=== PATIENT | male | born 1950 | race Caucasian/White ===

== ENCOUNTER 2018-08-28 10:17 | Emergency (ER) | payer MEDICARE, OTHER ==
--- NOTE | 2018-08-28 11:13 | ER Document Report ---
ED Neuro Symptoms/Deficit - General Stated Complaint: SYNCOPE Time Seen by Provider: 08/28/18 10:50 Primary Care Provider: MARIA DOLORES MORALES MD [Primary Care Provider] - Follow up as needed Notes: This is this patient's third episode of passing out and weakness. Today, he was with his eating breakfast at [employer] and after finishing, they were about to leave and he was unable to get up from sitting and stared glassy eyed and had blurred vision and could not talk or respond and went unconscious. EMS was called to the scene and says that he regained consciousness. Patient has had 2 prior episodes similar to this one. The first one was about a month ago and the patient was airlifted to [facility] where he was admitted and had a complete work-up for syncope. His symptoms at that time included left- sided weakness associated with the same central symptoms of blurred vision, etc. His symptoms completely resolved and his work-up at [facility] was normal including carotid studies and a MRI as well as CT scan of his brain. Also had EEG of the brain and negative carotid artery studies. Patient had a second episode just this past Saturday where any slumped unconscious while at [employer]. He was brought to the ER where he recovered completely from his symptoms and felt fine and his work-up was negative and he was discharged home. Patient has a 3 wire pacemaker that he had for 8 years. He has the pacemaker because his heart rate got too slow. Spoke with Dr. Munroe, this patient's private doctor at [facility] and [facility]. He has concerns about whether this pacemaker may be causing a problem in these episodes. I discussed whether he felt the patient should receive TPA or anticoagulation and he said "definitely not" based upon their concerns about circulation and the pacemaker. TRAVEL OUTSIDE OF THE [place] IN LAST 30 DAYS: No - Related Data Allergies/Adverse Reactions: iodine [Iodine] Allergy (Verified 01/02/14 19:28) Past Medical History - Social History Smoking Status: Unknown if Ever Smoked Family History: Reviewed & Not Pertinent - Past Medical History Cardiac Medical History: Reports: Other - Pacemaker. Denies: Hx Atrial Fibrillation Neurological Medical History: Reports: Other - See HPI. Psychiatric Medical History: Reports: None Past Surgical History: Reports: Hx Cardiac Surgery - pacemaker, Hx Orthopedic Surgery - bilat rotator cuffs, Hx Rectal Surgery - prostate - Immunizations Hx Diphtheria, Pertussis, Tetanus Vaccination: No Review of Systems - Review of Systems Notes: REVIEW OF SYSTEMS: Per family, because patient not speaking at this time. Patient attempting to answer questions, mouthing words like yes and no and also blinking eyes to answer questions CONSTITUTIONAL : Denies fever. EENT: Denies eye, ear, nose or mouth or throat pain or other symptoms. CARDIOVASCULAR: Denies chest pain. RESPIRATORY: Denies cough, chest congestion, or shortness of breath. GASTROINTESTINAL: Denies abdominal pain or nausea, vomiting, or diarrhea. GENITOURINARY: Denies difficulty or painful urinating, urinary frequency, blood in urine. MUSCULOSKELETAL: Denies back or neck pain. Denies joint pain or swelling. SKIN: Denies rash or skin lesions. NEUROLOGICAL: Loss of consciousness as mentioned, weakness of both arms. ALL OTHER SYSTEMS REVIEWED AND NEGATIVE. Physical Exam - Vital signs Vitals: Resp 22 H 08/28/18 10:21 Interpretation: Normal Notes: PHYSICAL EXAMINATION: GENERAL: Well-appearing, in no acute distress. HEAD: Atraumatic, normocephalic. No facial asymmetry. EYES: Pupils equal round and reactive to light, extraocular movements intact. ENT: oropharynx clear without exudates. Moist mucous membranes. NECK: Normal range of motion, supple. LUNGS: Breath sounds clear and equal bilaterally. HEART: Regular rate and rhythm without murmurs. ABDOMEN: Soft, nontender. No guarding or rebound. No masses. BACK: No tenderness throughout entire back. EXTREMITIES: Normal range of motion without pain. NEUROLOGICAL: LOC as described. See HPI. Patient has generalized weakness and is unable to raise either arm. 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 At this time, not complaining of a headache. PSYCH: Unable to assess.. SKIN: Warm, dry, no rashes. Course - Re-evaluation Re-evalutation: 08/28/18 16:45 Differential diagnosis includes TIA, seizures, near-syncope, conversion reaction. Just prior to about noon, spoke with Dr. Munroe, PCP in [place]. about 1:30 - 2:00 pm, Called from Hospitalist at [facility]--unable to accept patient in transfer because no Neuroology at their hospital. Spoke with [facility] and they cannot admit general bed patients--on divert to all. Spoke with Dr. Garner at [facility] who accepted pattient but no beds at this time, but will put patient on the list. 16:45 called to [facility] for possilbe transfer. 08/28/18 17:59 Received a call back from [facility] at [facility]. Spoke with Dr. Valadez, who says that we can send the patient to their emergency department for them to make a disposition from there. Patient has remained stable with normal vital signs. He has been able to eat a meal with no problems. Drinking liquids. No trouble swallowing. Patient appears to be medically stable for transfer. Accepting doctor in the emergency department at [facility] is Kain Johnson. Transport is being arranged. Kelly Fonseca MD - Vital Signs Vital signs: Temp Pulse Resp BP Pulse Ox 98.1 F 70 22 H 122/82 98 08/28/18 19:31 08/28/18 17:00 08/28/18 19:31 08/28/18 19:31 08/28/18 19:31 - Laboratory Result Diagrams: 08/28/18 10:10 08/28/18 10:10 Laboratory results interpreted by me: 08/28/18 10:10 BUN 24 H Creatinine 1.36 H Est GFR (Non-Af Amer) 52 L Glucose 67 L Direct Bilirubin 0.5 H ALT 19 L - Diagnostic Test Radiology reviewed: Image reviewed, Reports reviewed - CT scans normal. - EKG Interpretation by Me Rate: Normal Rhythm: Other - Atrial paced rhythm Critical Care Note - Critical Care Note Total time excluding time spent on procedures (mins): 50 Discharge - Discharge Clinical Impression: Altered mental status, unspecified, Transient ischemic attack (TIA) Condition: Stable Disposition: [facility] Referrals: MARIA DOLORES MORALES MD [Primary Care Provider] - Follow up as needed
--- NOTE | 2018-08-28 11:28 | RADIOLOGY REPORT (SQ) ---
EXAM DESCRIPTION: CT HEAD WITHOUT COMPLETED DATE/TIME: 08/28/2018 11:00 am REASON FOR STUDY: SYNCOPE, CONFUSION COMPARISON: 08/24/2018 TECHNIQUE: Axial images acquired through the brain without intravenous contrast. Images reviewed wi th bone, brain and subdural windows. Additional sagittal and coronal reconstructions were generated. Images stored on PACS. All CT scanners at this facility use dose modulation, iterative reconstruction, and/or weight based d osing when appropriate to reduce radiation dose to as low as reasonably achievable (ALARA). [facility]: Dose Right [facility]: CareDose [facility]: Dose Right [facility]: Teradose 4D [facility]: Smart Written RADIATION DOSE: CT Rad equipment meets quality standard of care and radiation dose reduction techniq ues were employed. CTDIvol: 53.2 mGy. DLP: 1097 mGy-cm. mGy. LIMITATIONS: None. FINDINGS: VENTRICLES: Normal size and contour. CEREBRUM: No masses. No hemorrhage. No midline shift. No evidence for acute infarction. Normal gra y/white matter differentiation. No areas of low density in the white matter. CEREBELLUM: No masses. No hemorrhage. No alteration of density. No evidence for acute infarction. EXTRAAXIAL SPACES: No fluid collections. No masses. ORBITS AND GLOBE: No intra- or extraconal masses. Normal contour of globe without masses. CALVARIUM: No fracture. PARANASAL SINUSES: No fluid or mucosal thickening. SOFT TISSUES: No mass or hematoma. OTHER: No other significant finding. IMPRESSION: No acute intracranial pathology. EVIDENCE OF ACUTE STROKE: NO. COMMENT: Quality ID # [id number]: Final reports with documentation of one or more dose reduction techniques (e.g., Automated exposure control, adjustment of the mA and/or kV according to patient size, use of iterative reconstruction technique) TECHNICAL DOCUMENTATION: JOB ID: [id number] [employer]- All Rights Reserved Reading location - IP/workstation name: [id number]
[2018-08-28 11:44] LABS: ABSOLUTE EOSINOPHILS # (AUTO) 0.1 10^3/uL (0.0-0.6); ABSOLUTE LYMPHOCYTES (AUTO) 1.5 10^3/uL (0.5-4.7); ABSOLUTE MONOCYTES (AUTO) 0.4 10^3/uL (0.1-1.4); ABSOLUTE NEUT (AUTO) 4.3 10^3/uL (1.7-8.2); BASOPHILS % (AUTO) 0.6 % (0-2); EOSINOPHILS % (AUTO) 1.7 % (0-6); HEMATOCRIT 40.5 % (37.9-51.0); HEMOGLOBIN 13.7 g/dL (13.5-17.0); LYMPHOCYTES % (AUTO) 24.2 % (13-45); MEAN CORPUSCULAR HEMOGLOBIN 29.9 pg (27.0-33.4); MEAN CORPUSCULAR HGB CONC 33.7 g/dL (32.0-36.0); MEAN CORPUSCULAR VOLUME 89 fl (80-97); MONOCYTES % (AUTO) 6.5 % (3-13); PLATELET COUNT 264 10^3/uL (150-450); RED BLOOD COUNT 4.57 10^6/uL (4.35-5.55); RED CELL DISTRIBUTION WIDTH 13.5 % (11.5-14.0); TOTAL CELLS COUNTED % (AUTO) 100 %; WHITE BLOOD COUNT 6.4 10^3/uL (4.0-10.5)
[2018-08-28 11:47] LABS: INTERNATIONAL RATION (INR) 0.88
[2018-08-28 11:48] LABS: PARTIAL THROMBOPLASTIN TIME 30.1 SEC (23.5-35.8)
[2018-08-28 11:50] LABS: PROTHROMBIN TIME 12.4 SEC (11.4-15.4)
[2018-08-28 12:08] LABS: ALANINE AMINOTRANSFERASE 19 U/L (21-72); ALBUMIN 4.1 g/dL (3.5-5.0); ALKALINE PHOSPHATASE 68 U/L (38-126); ANION GAP 10 (5-19); ASPARTATE AMINO TRANSFERASE 24 U/L (17-59); BILIRUBIN,DIRECT 0.5 mg/dL (0.0-0.4); BILIRUBIN,TOTAL 0.8 mg/dL (0.2-1.3); BLOOD UREA NITROGEN 24 mg/dL (7-20); CARBON DIOXIDE 29 mmol/L (22-30); CHLORIDE 102 mmol/L (98-107); CREATINE KINASE 62 U/L (55-170); SODIUM 140.7 mmol/L (137-145); TOTAL PROTEIN 7.4 g/dL (6.3-8.2)
[2018-08-28 12:12] LABS: GLUCOSE 67 mg/dL (75-110)
[2018-08-28 12:18] LABS: CREATINE KINASE MB 0.55 ng/mL (<4.55)
[2018-08-28 12:20] LABS: TROPONIN I < 0.012 ng/mL
[2018-08-28 19:38] VITALS: BP 122/82
--- NOTE | 2018-08-28 23:20 | EKG REPORT ---
SEVERITY:- ABNORMAL ECG - ATRIAL-PACED RHYTHM : Confirmed by: Landon Escalante 28-Aug-2018 23:20:25
== END 2018-08-28 20:03 | disposition short-term general hospital (02) ==
LOC: ER 10:17
DX: G45.9 Transient cerebral ischemic attack, unspecified (principal); R41.82 Altered mental status, unspecified; H53.8 Other visual disturbances; R53.1 Weakness; R55 Syncope and collapse; R00.1 Bradycardia, unspecified; Z95.0 Presence of cardiac pacemaker
CPT/HCPCS: 36415; 70450; 80053; 82550; 82553; 82962; 84484; 85025; 85610; 85730; 93005; 93010; 99291

== ENCOUNTER 2018-10-09 09:59 | Emergency (ER) | payer MEDICARE, OTHER ==
[2018-10-09 10:35] LABS: ABSOLUTE EOSINOPHILS # (AUTO) 0.1 10^3/uL (0.0-0.6); ABSOLUTE LYMPHOCYTES (AUTO) 1.2 10^3/uL (0.5-4.7); ABSOLUTE MONOCYTES (AUTO) 0.3 10^3/uL (0.1-1.4); ABSOLUTE NEUT (AUTO) 3.2 10^3/uL (1.7-8.2); BASOPHILS % (AUTO) 0.7 % (0-2); EOSINOPHILS % (AUTO) 2.2 % (0-6); HEMOGLOBIN 12.7 g/dL (13.5-17.0); LYMPHOCYTES % (AUTO) 24.9 % (13-45); MEAN CORPUSCULAR HEMOGLOBIN 30.1 pg (27.0-33.4); MEAN CORPUSCULAR HGB CONC 34.3 g/dL (32.0-36.0); MEAN CORPUSCULAR VOLUME 88 fl (80-97); MONOCYTES % (AUTO) 6.2 % (3-13); PLATELET COUNT 203 10^3/uL (150-450); RED CELL DISTRIBUTION WIDTH 13.1 % (11.5-14.0); TOTAL CELLS COUNTED % (AUTO) 100 %; WHITE BLOOD COUNT 4.8 10^3/uL (4.0-10.5)
[2018-10-09 10:45] LABS: APPEARANCE,URINE CLEAR; BILIRUBIN,URINE NEGATIVE (NEGATIVE); COLOR,URINE STRAW; GLUCOSE, URINE NEGATIVE (NEGATIVE); KETONES,URINE NEGATIVE (NEGATIVE); LEUKOCYTE ESTERASE,URINE NEGATIVE (NEGATIVE); NITRITE,URINE NEGATIVE (NEGATIVE); PROTEIN,URINE NEGATIVE (NEGATIVE); URINE SPECIFIC GRAVITY 1.008; UROBILINOGEN,URINE NEGATIVE mg/dL (<2.0)
[2018-10-09 10:54] LABS: ALANINE AMINOTRANSFERASE 25 U/L (21-72); ALBUMIN 3.8 g/dL (3.5-5.0); ALKALINE PHOSPHATASE 67 U/L (38-126); ANION GAP 6 (5-19); ASPARTATE AMINO TRANSFERASE 18 U/L (17-59); BILIRUBIN,DIRECT 0.4 mg/dL (0.0-0.4); BILIRUBIN,TOTAL 0.6 mg/dL (0.2-1.3); BLOOD UREA NITROGEN 19 mg/dL (7-20); CALCIUM 9.7 mg/dL (8.4-10.2); CARBON DIOXIDE 28 mmol/L (22-30); CHLORIDE 107 mmol/L (98-107); CREATINE KINASE 79 U/L (55-170); GLUCOSE 89 mg/dL (75-110); POTASSIUM 4.4 mmol/L (3.6-5.0); SODIUM 141.1 mmol/L (137-145); TOTAL PROTEIN 6.7 g/dL (6.3-8.2)
[2018-10-09 11:10] LABS: CREATINE KINASE MB 0.69 ng/mL (<4.55)
[2018-10-09 11:12] LABS: TROPONIN I < 0.012 ng/mL
--- NOTE | 2018-10-09 11:42 | ER Document Report ---
Entered by TREY WILLIAMSON SCRIBE 10/09/18 1105 Acting as scribe for:JH RENDON MD ED General - General Chief Complaint: Syncope Stated Complaint: WEAKNESS Time Seen by Provider: 10/09/18 10:35 Primary Care Provider: MARIA DOLORES MORALES MD [Primary Care Provider] - Follow up as needed Mode of Arrival: Medic Information source: Patient Notes: Patient is a 68 year old male presenting to the emergency department department via EMS accompanied by family complaining of syncopal episodes onset last night. Family states the patient could not "fully wake up" this morning further stating he had approximately 5-6 syncopal episodes. They state during the episodes, the patient's eyes will flutter and he is unresponsive for a brief period of time. EMS reports witnessing a "syncopal" episode, during which patient eyes fluttered and was able to resume speech within <10 seconds. They report the patient has had extensive neurological workup, due to identical symptoms, in [place] after being transferred from this ED on 08/28/18. They report the patient had witnessed syncopal episodes while on an 24hr EEG and further reports having blood work, dopplers and CT scans performed as well. He states they were unable to pinpoint the etiology of his symptoms while at [place]. He also reports having outpatient follow up pertaining his symptoms at [facility] with an unremarkable workup. 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 Cortez, 1 month ago and had a cardiac work up done. He states while there, his blood pressure dropped and he was instructed to discontinue his beta-blockers and prescribed Florinef. TRAVEL OUTSIDE OF THE [place] IN LAST 30 DAYS: No - Related Data Allergies/Adverse Reactions: iodine [Iodine] Allergy (Verified 01/02/14 19:28) Past Medical History - General Information source: Patient, Relative - Social History Smoking Status: Former Smoker Cigarette use (# per day): No Chew tobacco use (# tins/day): No Frequency of alcohol use: None Drug Abuse: None Lives with: Family Family History: Reviewed & Not Pertinent Patient has suicidal ideation: No Patient has homicidal ideation: No Past Surgical History: Reports: Hx Cardiac Surgery - pacemaker, Hx Orthopedic Surgery - bilat rotator cuffs, Hx Rectal Surgery - prostate - Immunizations Hx Diphtheria, Pertussis, Tetanus Vaccination: No Review of Systems - Review of Systems Constitutional: No symptoms reported EENT: No symptoms reported Cardiovascular: See HPI, Syncope Respiratory: No symptoms reported Gastrointestinal: No symptoms reported Genitourinary: No symptoms reported Male Genitourinary: No symptoms reported Musculoskeletal: No symptoms reported Skin: No symptoms reported Hematologic/Lymphatic: No symptoms reported Neurological/Psychological: No symptoms reported -: Yes All other systems reviewed and negative Physical Exam - Vital signs Vitals: Temp Pulse Ox 98.1 F 100 10/09/18 10:04 10/09/18 10:04 - Notes Notes: GENERAL: Alert, interacts well. No acute distress. HEAD: Normocephalic, atraumatic. EYES: Pupils equal, round, and reactive to light. Extraocular movements intact. ENT: Oral mucosa moist, tongue midline. Hearing aid in right ear. NECK: Full range of motion. Supple. Trachea midline. LUNGS: Clear to auscultation bilaterally, no wheezes, rales, or rhonchi. No respiratory distress. HEART: Regular rate and rhythm. No murmurs, gallops, or rubs. ABDOMEN: Soft, non-tender. Non-distended. Bowel sounds present in all 4 quadrants. No guarding, rigidity, or rebound. EXTREMITIES: Moves all 4 extremities spontaneously. No edema, radial and dorsalis pedis pulses 2/4 bilaterally. No cyanosis. NEUROLOGICAL: Alert and oriented x3. Normal speech. PSYCH: Normal affect, normal mood. SKIN: Warm, dry, normal turgor. No rashes or lesions noted. Course - Re-evaluation Re-evalutation: 10/09/18 12:05 I went into check on the patient, and found him having 1 of his "episodes". He did have some staring off. Seems a little confused and drowsy. He did some breathing where he was blowing out against pursed lips and puffing up his cheeks. He did eventually become much more alert. The family reports that most of his episodes are similar to this one. This did look very much like an absence seizure. I am surprised that his doctors have never decided to at least try him on anticonvulsants to see if this was the problem. I will start him on Depakote today and have him follow-up with his primary care provider this coming week. - Vital Signs Vital signs: Temp Pulse Resp BP Pulse Ox 98.1 F 73 12 174/100 H 98 10/09/18 10:05 10/09/18 11:42 10/09/18 11:36 10/09/18 11:42 10/09/18 11:36 - Laboratory Result Diagrams: 10/09/18 10:08 10/09/18 10:08 Laboratory results interpreted by me: 10/09/18 10:08 RBC 4.20 L Hgb 12.7 L Hct 37.0 L - EKG Interpretation by Me EKG shows normal: Ulysses, Intervals, QRS Complexes, ST-T Waves Rate: Normal - 71 Rhythm: Other - Atrial paced rhythm Ulysses/QRS: Left axis deviation - Borderline left axis deviation Discharge - Discharge Clinical Impression: Recurrent syncope, Absence seizure Condition: Stable Disposition: HOME, SELF-CARE Additional Instructions: Seizure: You appear to be having absence seizures. Seizure disorders (epilepsy) of one sort or another affect about one out of 50 people. The seizure occurs because of abnormal electrical activity in the brain. Seizures may be due to drugs and alcohol, strokes, brain injury, or infection. In the most common form of epilepsy, no cause can be found. You will require further evaluation to determine the cause of your seizure, and to determine whether anti-seizure medication is required. This follow-up testing is important, so please call us if you encounter problems with scheduling of tests or appointments. YOU SHOULD NOT DRIVE until released to do so by your physician. The law requires that seizures be reported to the [place] driver's license bureau--a seizure while driving could be catastrophic. Call the doctor if seizures recur, or if you develop new symptoms such as fever, severe headache, stiff neck, confusion or increasing sleepiness, weakness or numbness, or visual problems. Your history, and extensive work-ups suggests you may be having absence seizures. The episode you had today that I witnessed was very suspicious for an absence seizure. You will be started on medication for the seizures to see if it prevents you from having further episodes. You should follow-up with Dr. Morales this week for reevaluation, and to discuss whether or not to stay on the Depakote. Prescriptions: Divalproex Sodium [Depakote] 500 mg PO Q8 #30 tablet.dr Referrals: MARIA DOLORES MORALES MD [Primary Care Provider] - Follow up in 3-5 days Scribe Attestation: 10/09/18 11:43 I personally performed the services described in the documentation, reviewed and edited the documentation which was dictated to the scribe in my presence, and it accurately records my words and actions. I personally performed the services described in the documentation, reviewed and edited the documentation which was dictated to the scribe in my presence, and it accurately records my words and actions.
[2018-10-09] MEDS ORDERED: DIVALPROEX SODIUM 250 MG TABLET.DR PO ONE (12:00)
[2018-10-09 12:25] VITALS: BP 172/104
--- NOTE | 2018-10-09 12:52 | EKG REPORT ---
SEVERITY:- ABNORMAL ECG - ATRIAL-PACED RHYTHM BORDERLINE LEFT AXIS DEVIATION : Confirmed by: Bernardino Will MD 09-Oct-2018 12:52:39
== END 2018-10-09 12:27 | disposition home or self-care (01) ==
LOC: ER 09:59
DX: R55 Syncope and collapse (principal); R56.9 Unspecified convulsions; R53.1 Weakness; Z87.891 Personal history of nicotine dependence
CPT/HCPCS: 93005; 99284; 36415; 82553; 82550; 85025; 80053; 81001; 84484; 93010; A9270

== ENCOUNTER 2018-10-18 13:58 | Emergency (ER) | payer MEDICARE, OTHER ==
[2018-10-18 14:05] VITALS: BP 179/70
--- NOTE | 2018-10-18 14:37 | ER Document Report ---
HPI - HPI Pain Level: 0 Notes: Patient is a 68-year-old male with a history of pacemaker placement and recurrent syncopal episodes, unspecified, possible absence seizure's who presents for refill of his Depakote that he was prescribed at his last visit here. Patient states that he has been taking his medicines as directed and has a follow-up with his family doctor scheduled in 5 days. Patient states that he is feeling well and is eating and drinking without difficulty. He is urinating normally and having normal bowel movements. Patient states that he does continue to have his "episodes" but they are not lasting as long. He has seen specialist in [place] as well. He has no other concerns or complaints and is just requesting a refill at this time. Denies any headache, fever, head injury, neck pain, changes in vision/speech/mentation/hearing, URI, sore throat, chest pain, palpitations, cough, shortness of breath, wheeze, dyspnea, abdominal pain, nausea/vomiting/diarrhea, urinary retention, dysuria, hematuria, loss of control of bowel or bladder, numbness/tingling, saddle anesthesia, muscle paralysis/weakness, or rash. - ROS Systems Reviewed and Negative: Yes All other systems reviewed and negative Past Medical History - Social History Smoking Status: Unknown if Ever Smoked Family History: Reviewed & Not Pertinent - Past Medical History Cardiac Medical History: Denies: Hx Atrial Fibrillation Renal/ Medical History: Denies: Hx Peritoneal Dialysis Past Surgical History: Reports: Hx Cardiac Surgery - pacemaker, Hx Orthopedic Surgery - bilat rotator cuffs, Hx Rectal Surgery - prostate - Immunizations Hx Diphtheria, Pertussis, Tetanus Vaccination: No Vertical Provider Document - CONSTITUTIONAL Agree With Documented VS: Yes Notes: PHYSICAL EXAMINATION: GENERAL: Well-appearing, well-nourished and in no acute distress. HEAD: Atraumatic, normocephalic. EYES: Pupils equal round and reactive to light, extraocular movements intact, sclera anicteric, conjunctiva are normal. LUNGS: Breath sounds clear to auscultation bilaterally and equal. No wheezes rales or rhonchi. HEART: Regular rate and rhythm without murmurs, rubs, gallops. Musculoskeletal: FROM to passive/active. Strength 5+/5. Extremities: No cyanosis, clubbing, or edema b/l. Peripheral pulses 2+. Capillary refill less than 3 seconds. NEUROLOGICAL: Cranial nerves grossly intact. Normal speech, normal gait. Normal sensory, motor exams PSYCH: Normal mood, normal affect. SKIN: Warm, Dry, normal turgor, no rashes or lesions noted. - INFECTION CONTROL TRAVEL OUTSIDE OF THE [place] IN LAST 30 DAYS: No Course - Re-evaluation Re-evalutation: 10/18/18 14:34 Patient is an afebrile, well-hydrated, 68-year-old male who presents for medication refill of his Depakote. Vitals are acceptable without significant tachycardia, tachypnea, or hypoxia. PE is otherwise unremarkable for any obvious focal neurological deficits. Patient is nontoxic-appearing is able to tolerate p.o. without difficulty. He is tolerating the medication well without significant side effects to note. No further work-up warranted at this time, but I will obtain a Depakote level. Low suspicion for any significant or life- threatening illness at this time. Patient to monitor symptoms closely and seek medical attention with acute changes. Recheck with your PCM as scheduled. Return to the ED with any other worsening/concerning symptoms. Patient is in agreement. - Vital Signs Vital signs: Temp Pulse Resp BP Pulse Ox 98.1 F 76 18 179/70 H 98 10/18/18 14:03 10/18/18 14:03 10/18/18 14:03 10/18/18 14:03 10/18/18 14:03 Discharge - Discharge Clinical Impression: Medication refill Condition: Stable Disposition: HOME, SELF-CARE Additional Instructions: Rest, Ice/cool compress Tylenol/ibuprofen as needed Light stretches daily Strength exercises as able Moist heat and massage may help F/u with your PCP as scheduled for a recheck Consider consult(s) with Neurology for ongoing/worsening symptoms Return to the ED with any worsening symptoms and/or development of fever, headache, changes in behavior/mentation/vision/speech, chest pain, palpitations, syncope, shortness of breath, trouble breathing, abdominal pain, n/v/d, blood in stool/urine, loss of control of bowel/bladder, urinary retention, muscle weakness/paralysis, saddle anesthesia, numbness/tingling, or other worsening symptoms that are concerning to you. Prescriptions: Divalproex Sodium [Depakote] 500 mg PO TID #30 tablet.dr Forms: Elevated Blood Pressure Referrals: MARIA DOLORES MORALES MD [Primary Care Provider] - 10/23/18 SHANNA STACK MD [NO LOCAL MD] - Follow up as needed
== END 2018-10-18 14:57 | disposition home or self-care (01) ==
LOC: ER 13:58
DX: Z76.0 Encounter for issue of repeat prescription (principal); Z95.0 Presence of cardiac pacemaker
CPT/HCPCS: 36415; 80164; 99282